=== PATIENT | male | born 1950 | race Caucasian/White ===

== ENCOUNTER 2018-07-11 16:23 | Inpatient (IN) | payer BC, MEDICARE ==
[2018-07-11] MEDS ORDERED: ATORVASTATIN 80 MG TAB PO STA (16:33)
[2018-07-11] MEDS ORDERED: HEPARIN SODIUM,PORCINE 5,000 UNIT/ML 1 ML VIAL IV STA (16:33)
[2018-07-11] MEDS ORDERED: NITROGLYCERIN SL TABS 0.4 MG TAB SUBLINGUAL STA (16:34)
[2018-07-11] MEDS ORDERED: SODIUM CHLORIDE 0.9% 1,000 ML IV STA (16:40)
[2018-07-11] MEDS ORDERED: SODIUM CHLORIDE 0.9% 500 ML 500 ML IV STA ×2 (16:40→16:42)
--- NOTE | 2018-07-11 16:40 | ED ---
Chest Pain HPI - General Chief Complaint: Chest Pain Stated Complaint: Chest pain Time Seen by Provider: 07/11/18 16:23 Source: patient, EMS, RN notes reviewed Mode of arrival: EMS Limitations: no limitations - History of Present Illness Initial Comments: This is a 67-year-old male with a prior history of heart disease and cardiac stents who states he had he has a history of retrosternal burning type pain it felt like indigestion. It persisted into today but he started also having achy pain going into his neck on the left side toward his left arm. No fevers chills nausea vomiting sweats or other symptoms he finally called EMS this afternoon and was brought in. He was given aspirin and 3 nitroglycerin by EMS personnel his pain went from a 6-7/10 down to almost 0 at this time. No other modifying factors. The 12-lead submitted by EMS did show evidence of ST elevation in the anterior leads and some evidence of lateral elevation. MD Complaint: chest pain - Related Data Allergies Allergy/AdvReac Type Severity Reaction Status Date / Time No Known Allergies Allergy Verified 07/11/18 16:28 Review of Systems ROS Statement: Those systems with pertinent positive or pertinent negative responses have been documented in the HPI. ROS Other: All systems not noted in ROS Statement are negative. EKG Findings - EKG Results: EKG: interpreted by JORDAN (Sinus tachycardia with a rate of 146. Interval 138 QRS duration 78 QT since QTC 264/411 evidence of lateral and age indeterminate infarct also in the inferior leads. Evidence of ST elevation in V2 no old EKG available for comparison) Past Medical History Past Medical History: Diabetes Mellitus, Hyperlipidemia, Hypertension Additional Past Medical History / Comment(s): chest pain History of Any Multi-Drug Resistant Organisms: None Reported Past Surgical History: Heart Catheterization With Stent Past Psychological History: No Psychological Hx Reported Smoking Status: Never smoker Past Alcohol Use History: None Reported, Occasional Past Drug Use History: None Reported General Exam - General Exam Comments Initial Comments: This is a well-developed well-nourished awake alert anxious appearing male who is oriented 3 Limitations: no limitations General appearance: alert, anxious Head exam: Present: atraumatic, normocephalic, normal inspection Eye exam: Present: normal appearance, PERRL, EOMI. Absent: scleral icterus, conjunctival injection, periorbital swelling ENT exam: Present: normal exam, mucous membranes moist Neck exam: Present: normal inspection, full ROM, other (No stridor JVD or bruits ). Absent: tenderness, meningismus, lymphadenopathy Respiratory exam: Present: normal lung sounds bilaterally. Absent: respiratory distress, wheezes, rales, rhonchi, stridor Cardiovascular Exam: Present: normal rhythm, tachycardia, normal heart sounds. Absent: systolic murmur, diastolic murmur, rubs, gallop, clicks GI/Abdominal exam: Present: soft, normal bowel sounds. Absent: distended, tenderness, guarding, rebound, rigid Extremities exam: Present: normal inspection, full ROM, normal capillary refill. Absent: tenderness, pedal edema, joint swelling, calf tenderness Back exam: Present: normal inspection Neurological exam: Present: alert, oriented X3, CN II-XII intact Psychiatric exam: Present: normal affect, normal mood Skin exam: Present: warm, dry, intact, normal color. Absent: rash Course Vital Signs 07/11/18 07/11/18 07/11/18 16:24 16:35 16:40 Temperature 97.7 F Pulse Rate 144 H 131 H Respiratory 18 18 18 Rate Blood Pressure 151/103 162/112 O2 Sat by Pulse 95 98 Oximetry 07/11/18 16:49 Temperature Pulse Rate 142 H Respiratory 18 Rate Blood Pressure 156/100 O2 Sat by Pulse 98 Oximetry - Reevaluation(s) Reevaluation #1: 07/11/18 16:42 Comparing this EKG that was done in the emergency department with one transmitted by EMS and does appear to be some improvement in the waveforms in the lateral and anterior leads. Patient has very minimal discomfort in the anterior chest and neck at this time. Additionally his heart rate was noted that when he was more calm is a post when he was very anxious. Reevaluation #2: 07/11/18 16:42 monitoring engineer: This was ordered upon arrival for evaluation for possible dysrhythmia. The patient did present with chest pain consistent with acute coronary syndrome. Reevaluation #3: 07/11/18 16:43 I did discuss the case with Dr. Henley and Dr. Kennedy. A STEMI alert was called. Reevaluation #4: 07/11/18 16:52 Reevaluation patient revealed he had no chest pain or neck pain he did state he had a slight sore throat he attributes this to swallowing regular aspirin earlier. He is very anxious and emotional son is present. Reevaluation #5: 07/11/18 16:58 Patient did go to the Data Migration Lead. I did discuss the case with Dr. Patterson Chest Pain MDM - MDM Patient to go directly to the Data Migration Lead. Dr. Patterson will be notified by me. Critical Care Time Critical Care Time: Yes Critical Care Time: 31 minutes of critical care time which includes initial presentation with history physical lab and x-ray orders multiple reevaluation the patient to responsive therapy discussion with paramedics upon arrival review of the EKG that was presented by EMS. Discussion with the hospice social worker discussed with family members discussion with the attending physician documentation of the above. Disposition Clinical Impression: ST elevation myocardial infarction (STEMI), Chest pain, Anxiety Disposition: ADMITTED IP TO THIS HOSP Condition: Serious Referrals: Kimberly Patterson MD [Primary Care Provider] - 1-2 days
[2018-07-11] MEDS ORDERED: SODIUM CHLORIDE 0.9% 1,000 ML IV ONE (16:53)
[2018-07-11] MEDS ORDERED: SODIUM CHLORIDE 0.9% 500 ML 500 ML IV ONE (16:53)
[2018-07-11 16:57] LABS: Basophils % (A) 0 %; Eosinophils # (A) 0.2 k/uL (0-0.7); Eosinophils % (A) 2 %; HCT 42.3 % (39.0-53.0); HGB 14.5 gm/dL (13.0-17.5); Lymphocytes # (A) 2.9 k/uL (1.0-4.8); Lymphocytes % (A) 29 %; MCH 29.7 pg (25.0-35.0); MCHC 34.3 g/dL (31.0-37.0); MCV 86.6 fL (80.0-100.0); Mean Platelet Volume 7.2; Monocytes # (A) 0.8 k/uL (0-1.0); Monocytes % (A) 8 %; Neutrophils # (A) 5.7 k/uL (1.3-7.7); Neutrophils % (A) 58 %; Platelet Count 321 k/uL (150-450); RBC 4.89 m/uL (4.30-5.90); RDW 13.2 % (11.5-15.5); WBC 9.9 k/uL (3.8-10.6)
[2018-07-11] MEDS ORDERED: METOPROLOL TARTRATE 5 MG/5 ML VIAL IVP ONE ×2 (17:03→17:05)
[2018-07-11] MEDS ORDERED: fentaNYL (PF) 50 MCG/ML 2 ML AMP IVP ONE (17:06)
[2018-07-11 17:07] LABS: INR 0.9 (<1.2); Partial Thromboplastin Time 23.3 sec (22.0-30.0)
[2018-07-11] MEDS ORDERED: fentaNYL (PF) 50 MCG/ML 2 ML AMP ONE (17:07)
[2018-07-11] MEDS ORDERED: LIDOCAINE 1% INJ 10MG/ML (20 ML MDV) SQ ONE (17:07)
[2018-07-11] MEDS ORDERED: MIDAZOLAM 2 MG/2 ML VIAL IVP ONE (17:07)
[2018-07-11] MEDS ORDERED: BIVALIRUDIN BOLUS 250 MG/50 ML IV ONE (17:14)
[2018-07-11] MEDS ORDERED: TICAGRELOR 90 MG TAB ONE (17:16)
[2018-07-11] MEDS ORDERED: TICAGRELOR 90 MG TAB PO ONE (17:19)
[2018-07-11] MEDS ORDERED: BIVALIRUDIN 250 MG in SODIUM CHLORIDE 0.9% 50 ML IV ONE ×4 (17:19)
[2018-07-11 17:30] LABS: Albumin 4.2 g/dL (3.5-5.0); Calcium 10.1 mg/dL (8.4-10.2); Magnesium 1.6 mg/dL (1.6-2.3); Potassium 4.2 mmol/L (3.5-5.1); Total Bilirubin 0.7 mg/dL (0.2-1.3); Total Protein 7.1 g/dL (6.3-8.2)
[2018-07-11] MEDS ORDERED: IOPAMIDOL-370 150ML BTL INJ ONE (17:41)
[2018-07-11] MEDS ORDERED: IOPAMIDOL-370 50ML BTL INJ ONE ×2 (17:54→18:04)
[2018-07-11] MEDS ORDERED: NITROGLYCERIN 1000MCG/10ML SYRINGE INTRACORON ONE (17:56)
--- NOTE | 2018-07-11 18:09 | CONS ---
CONSULTATION CHIEF COMPLAINT: Chest pain. This is a 68-year-old gentleman with history of coronary artery disease, status post prior anterior wall myocardial infarction. He had an angioplasty of LAD. He presented to hospital with sudden-onset chest pain this evening. He describes it as a burning discomfort in his neck, burning discomfort in his throat, and subsequently he had chest pain. It was 7/10 intensity. It was called in as a STEMI and we were called. We activated the lab and brought him for emergent cardiac catheterization. At the time of my evaluation, the patient seems [id number], hemodynamically stable. He is tachycardic and seems somewhat anxious, but his chest pain has resolved. PAST MEDICAL HISTORY: Significant for coronary artery disease, status post angioplasty. MEDICATIONS: As charted. ALLERGIES: CHARTED. FAMILY HISTORY: Negative for premature coronary artery disease. SOCIAL HISTORY: Negative for current smoking, EtOH abuse or drug abuse. REVIEW OF SYSTEMS: Twelve out of twelve system review has been performed. Pertinent information is that he has chest pain. PHYSICAL EXAMINATION: Patient appears comfortable at rest. Vital signs are stable. There is no jugular venous distention. Carotid upstroke is normal. There is no bruit. Chest exam reveals good air entry bilaterally. Heart exam reveals first and second heart sounds. No gallop. He has a systolic murmur at the left lower sternal border. Abdomen is soft. Examination of extremities did not reveal any edema. Peripheral pulses are palpable. EKG shows acute ST-segment elevation in the anterolateral leads. IMPRESSION: Acute anterior wall myocardial infarction. PLAN: Patient will undergo emergent cardiac catheterization, angioplasty. MMODL / IJN: [id number] /
[2018-07-11] MEDS ORDERED: RX INFO: IV CONTRAST WAS GIVEN 1 EACH MISC MISCELLANE PRN (18:12)
[2018-07-11] MEDS ORDERED: ATROPINE SULFATE 0.1 MG/ML 10ML SYRINGE IV PRN (18:12)
[2018-07-11] MEDS ORDERED: NITROGLYCERIN SL TABS 0.4 MG TAB SUBLINGUAL PRN (18:12)
[2018-07-11] MEDS ORDERED: ZOLPIDEM 5 MG TAB PO PRN (18:12)
[2018-07-11] MEDS ORDERED: MAG HYDROX/AL HYDROX/SIMETH 30 ML CUP PO PRN (18:12)
--- NOTE | 2018-07-11 18:12 | CC ---
CARDIAC CATHETERIZATION REPORT INDICATION: Acute ST-segment elevation CO. PROCEDURE NOTE: After obtaining informed consent, left heart catheterization and coronary angiogram were performed via the right femoral artery using standard Juan catheters. Patient tolerated the procedure well without any obvious immediate complications. Patient received moderate conscious sedation. Total sedation time was 12 minutes. FINDINGS: HEMODYNAMICS: Left ventricular end-diastolic pressure is 16-18 mm. There is no significant gradient across the aortic valve. LEFT VENTRICULOGRAM: Left ventriculogram was not performed. ANGIOGRAPHIC DATA: LEFT MAIN CORONARY ARTERY: Left main coronary artery appears calcified but is free of significant stenosis. It divides into left anterior descending coronary artery and circumflex coronary artery. LAD shows 95% stenosis in the proximal part, proximal to the previous stent. He also has another area of segmental lesion in the middle of the stent and in the distal part of the stent. Circumflex coronary artery is free of stenosis. An OM branch is chronically occluded. It was occluded on previous cath. RIGHT CORONARY ARTERY: Right coronary artery is a small nondominant vessel and is free of significant stenosis. CONCLUSIONS: Stenosis of 99% in the proximal part of the LAD and segmental area of some stenotic lesions within the LAD and chronic occlusion of the OM branch. PLAN: Patient will undergo angioplasty of the proximal LAD. MMODL / IJN: [id number] /
[2018-07-11] MEDS ORDERED: SODIUM CHLORIDE 0.9% 1,000 ML IV SCH (18:15)
[2018-07-11 18:38] LABS: Glucose,Whole Blood 192 mg/dL (75-99)
--- NOTE | 2018-07-11 18:42 | CC ---
CARDIAC CATHETERIZATION REPORT Mr. Ray is a 68-year-old male with a known history of coronary artery disease who presented with symptoms of chest discomfort and ST-segment elevation anteriorly. He underwent cardiac catheterization by Dr. Henley and was found to have critical stenosis involving the proximal LAD and significant in-stent restenosis that was performed in 2009 in the mid segment of the LAD. In view of that, recommendation was made regarding angioplasty and stenting. The procedures, risks and complications were discussed with the patient who is in full understanding and agreement. PROCEDURE: A 6-Ethiopian FL 3.5 guiding catheter was introduced into the system after cannulating the left main, a 0.014 balanced medium weight J-wire was advanced across the lesion and positioned distally. Then a 2.5 x 12 mm Trek balloon was advanced and multiple inflations at a maximum of 8 atmospheres were done. Following that, the balloon was removed and attempt to advance a 2.5 x 28 mm Xience Lily stent were unsuccessful. That stent was removed and a another 0.2014 balanced medium weight J-wire was advanced next to the first one in a madeline fashion, positioned in the distal LAD and then the 2.5 x 28 mm Xience Lily was advanced, deployed and postdilated at 14 atmospheres. After removing the balloon, a 2.5 x 18 mm Xience Lily stent was deployed proximal to the first one and it was dilated at 14 atmospheres. Following that, the balloon was removed and a 2.75 x 50 mm Xience Lily stent was deployed proximally and it was dilated at 16 atmospheres. Following that, a 2.75 x 8 mm Xience Lily stent was deployed in the overlapping segment between the last stent and the second stent and was dilated at 16 atmospheres. After the last inflation, after appropriate wait, the balloon and the guidewire were withdrawn back in the guiding catheter. Images were obtained and repeated. Those images revealed stable successful stenting. At that point, the guiding catheter, the balloon and the guidewire were removed. The sheath was removed. Hemostasis was obtained with deployment of an Angio-Seal. There was no immediate complication. Patient was returned to his room in stable condition. Of note, the patient had chest discomfort and EKG changes with the inflation that improved at the end of the procedure. He received Angiomax per protocol as well as oral loading dose of Brilinta. RESULTS: 1. Successful stenting of the proximal culprit lesion of the LAD with reduction of stenosis from 95% to 0%. 2. Successful stenting of two long segments of in-stent restenosis of the mid LAD of the stents that were performed in 2009 with reduction of stenosis from 95% to 0%. RECOMMENDATION: Patient will be continued on aspirin, Brilinta, beta blockers and statin. The importance of dual antiplatelet treatment were discussed with the patient and his family who are in full understanding and agreement. Duration of procedure is 43 minutes. MMODL / IJN: [id number] /
--- NOTE | 2018-07-11 19:09 | LTR ---
DATE OF SERVICE: 07/11/[address] Patterson: I had the pleasure of performing coronary angioplasty and stenting on Mr. Ray at [facility] on July 11 and a full copy of procedure note will be forwarded to you. In brief, he underwent successful stenting of his proximal mid LAD using drug- eluting stent. I am hopeful that this procedure will stabilize his status. I will keep you updated on his progress. Thank you again for allowing me to participate in his care. Please feel free to call for any questions. Sincerely yours, MMARIADNAL / IJN: [id number] /
[2018-07-11] MEDS: METOPROLOL TARTRATE 25 MG TAB PO SCH (20:10)
[2018-07-11 23:01] LABS: Cholesterol 156 mg/dL (<200); HDL Cholesterol 42 mg/dL (40-60); LDL Cholesterol,Calculated 77 mg/dL (0-99); Triglycerides 184 mg/dL (<150)
[2018-07-11] MEDS: INSULIN ASPART (NovoLOG) 100 UNIT/ML VIAL SQ SCH (23:01)
[2018-07-11 23:23] LABS: Glucose,Whole Blood 212 mg/dL (75-99)
[2018-07-12] MEDS: NITROGLYCERIN OINT 1 INCH/GM PACKET TOPICAL SCH ×4 (01:19→18:10)
[2018-07-12 02:03] LABS: Glucose,Whole Blood 238 mg/dL (75-99)
[2018-07-12 05:36] LABS: Calcium 8.9 mg/dL (8.4-10.2); Potassium 4.7 mmol/L (3.5-5.1)
[2018-07-12 07:03] LABS: Glucose,Whole Blood 153 mg/dL (75-99)
[2018-07-12] MEDS: INSULIN ASPART (NovoLOG) 100 UNIT/ML VIAL SQ SCH ×4 (08:09→21:18)
[2018-07-12] MEDS: METOPROLOL TARTRATE 25 MG TAB PO SCH ×2 (08:22→21:17)
[2018-07-12] MEDS: ASPIRIN 81 MG PO SCH (08:22)
[2018-07-12] MEDS: TICAGRELOR 90 MG TAB PO SCH ×2 (08:23→21:18)
[2018-07-12] MEDS: LISINOPRIL 5 MG TAB PO SCH (10:26)
--- NOTE | 2018-07-12 10:59 | P.PN ---
Subjective Progress Note Date: 07/12/18 This is a 68-year-old gentleman with history of ischemic heart disease with previous stent placement of the mid LAD who was admitted to the hospital with ST elevation microinfarction. Patient had a cardiac catheterization and was found to have 95% stenosis of the proximal LAD and also significant in-stent stenosis involving mid LAD. Patient and multiple stents done by Dr. Kennedy. Patient seemed to be doing well. Denies any chest pain, shortness of breath or dizziness. No arrhythmias noted. His lab work showed a peak troponin of 11.9. Electoral lites are within normal limits. His cholesterol is 156, LDL is 77. Lungs are clear. Heart is regular. His puncture site is soft without any hematoma. Please increase his activity. Will get an echocardiogram tomorrow. Transfer to telemetry tomorrow Objective - Vital Signs Vital signs: Vital Signs Temp 96.9 F L 07/12/18 08:00 Pulse 76 07/12/18 10:00 Resp 14 07/12/18 10:00 BP 116/80 07/12/18 10:00 Pulse Ox 94 L 07/12/18 10:00 Intake & Output 07/11/18 07/12/18 07/12/18 18:59 06:59 18:59 Intake Total 778 1240 400 Output Total 675 0 Balance 778 565 400 Weight 66.678 kg 69.9 kg Intake: IV 778 800 Sodium Chloride 0.9% 1, 800 000 ml @ 100 mls/hr IV . Q10H [facility] Rx#:[id number] Intake, IV Titration 200 Amount Sodium Chloride 0.9% 1, 200 000 ml @ 100 mls/hr IV . Q10H [facility] Rx#:[id number] Oral 240 400 Output: Urine 675 0 Other: # Voids 1 1 - Exam GENERAL EXAM: Patient is alert and oriented and doesn't appear to be in any acute distress HEENT: Normocephalic. Normal reaction of pupils, equal size, normal range of extraocular motion. No erythema or exudates in the throat. NECK: No masses, no nuchal rigidity. CHEST: No chest wall deformity. LUNGS: Equal air entry with no crackles or wheeze. HEART: S1 and S2 normal with no audible mumurs or gallops. Regular rhythm, femorals equal on both sides.. ABDOMEN: No hepatosplenomegaly, normal bowel sounds, no guarding or rigidity. SKIN: No rashes CENTRAL NERVOUS SYSTEM: No focal deficits. EXTREMITIES: No cyanosis, clubbing or edema. PUNCTURE SITE: Soft without any hematoma - Labs CBC & Chem 7: 07/11/18 16:25 07/12/18 05:10 Labs: Abnormal Lab Results - Last 24 Hours (Table) 07/11/18 07/11/18 07/11/18 Range/Units 16:25 18:26 22:27 Sodium (137-145) mmol/L Carbon Dioxide 21 L (22-30) mmol/L Creatinine 1.31 H (0.66-1.25) mg/dL Glucose 244 H (74-99) mg/dL POC Glucose (mg/dL) 192 H (75-99) mg/dL Troponin I 7.480 H* (0.000-0.034) ng/mL Triglycerides (<150) mg/dL 07/11/18 07/11/18 07/12/18 Range/Units 22:27 22:54 01:52 Sodium (137-145) mmol/L Carbon Dioxide (22-30) mmol/L Creatinine (0.66-1.25) mg/dL Glucose (74-99) mg/dL POC Glucose (mg/dL) 212 H 238 H (75-99) mg/dL Troponin I (0.000-0.034) ng/mL Triglycerides 184 H (<150) mg/dL 07/12/18 07/12/18 07/12/18 Range/Units 05:10 05:10 06:52 Sodium 136 L (137-145) mmol/L Carbon Dioxide (22-30) mmol/L Creatinine (0.66-1.25) mg/dL Glucose 136 H (74-99) mg/dL POC Glucose (mg/dL) 153 H (75-99) mg/dL Troponin I 11.900 H* (0.000-0.034) ng/mL Triglycerides (<150) mg/dL Assessment and Plan (1) ST elevation myocardial infarction (STEMI) Current Visit: Yes Status: Acute Code(s): I21.3 - ST ELEVATION (STEMI) MYOCARDIAL INFARCTION OF UNS SITE SNOMED Code(s): 766247276 (2) Diabetes mellitus Current Visit: Yes Status: Acute Code(s): E11.9 - TYPE 2 DIABETES MELLITUS WITHOUT COMPLICATIONS SNOMED Code(s): 23393584 (3) Hypertension Current Visit: Yes Status: Acute Code(s): I10 - ESSENTIAL (PRIMARY) HYPERTENSION SNOMED Code(s): 48265215 (4) Hyperlipidemia Current Visit: Yes Status: Acute Code(s): E78.5 - HYPERLIPIDEMIA, UNSPECIFIED SNOMED Code(s): 82779748 Plan: Patient is clinically doing well. Lungs are clear. Heart is regular. We'll increase his activity. Echo in the morning. Transfer to telemetry in the morning.
[2018-07-12 11:36] VITALS: BMI 23.4
[2018-07-12 12:25] LABS: Glucose,Whole Blood 211 mg/dL (75-99)
[2018-07-12] MEDS: ALLOPURINOL 300 MG TAB PO SCH (12:42)
--- NOTE | 2018-07-12 13:02 | P.HPIM ---
History of Present Illness H&P Date: 07/12/18 Chief Complaint: Chest pain Etienne Ray is a 68-year-old male who presented to [facility] emergency room via EMS after having an episode of chest pain, patient stated that he was alone at home when he started having pressure in the middle of his chest radiating up to the left side of his neck he called EMS EKG was done at the house and revealed ST elevation in the anterior lead patient was brought into emergency room and was taken immediately to the laboratory specialist he had evidence of 99% stenosis in the mid LAD, he underwent angioplasty and stent placement to the lesion and also 2 other lesions in the LAD that showed restenosis inside the previous stents patient was doing well he was admitted to intensive care unit. Patient has a known history of coronary artery disease with previous history of angioplasty and stent placement in the past, he also has known history of non- insulin-dependent diabetes mellitus his last hemoglobin A1c was 7.4 he has history of hypertension, hyperlipidemia, hypothyroidism, and gout. He is a former smoker he has not smoked in years, he is still active and works full- time at this time. Past Medical History Past Medical History: Coronary Artery Disease (CAD), Chest Pain / Angina, Diabetes Mellitus, Hyperlipidemia, Hypertension, Myocardial Infarction (HI) Additional Past Medical History / Comment(s): chest pain Last Myocardial Infarction Date:: 9 years ago History of Any Multi-Drug Resistant Organisms: None Reported Past Surgical History: Heart Catheterization With Stent Past Anesthesia/Blood Transfusion Reactions: No Reported Reaction Date of Last Stent Placement:: 11/2009 Smoking Status: Never smoker - Past Family History Father Family Medical History: Myocardial Infarction (HI) Additional Family Medical History / Comment(s): ruptured bowel Mother History Unknown: Yes Family Medical History: Myocardial Infarction (HI) Additional Family Medical History / Comment(s): ETOH Sister(s) Family Medical History: Coronary Artery Disease (CAD) Medications and Allergies Home Medications Medication Instructions Recorded Confirmed Type Allopurinol [Zyloprim] 300 mg PO DAILY 07/12/18 07/12/18 History Aspirin [[place]em Aspirin EC] 81 mg PO DAILY 07/12/18 07/12/18 History Ergocalciferol [Vitamin D2 50,000 unit PO MO 07/12/18 07/12/18 History (DRISDOL)] Famotidine [Pepcid] 20 mg PO DAILY PRN 07/12/18 07/12/18 History Indomethacin 25 mg PO Q8HR PRN 07/12/18 07/12/18 History Levothyroxine Sodium [Synthroid] 50 mcg PO DAILY 07/12/18 07/12/18 History Metoprolol Tartrate 25 mg PO DAILY 07/12/18 07/12/18 History Nitroglycerin Sl Tabs [Nitrostat] 0.4 mg SL DIRECTED 07/12/18 07/12/18 History Simvastatin 80 mg PO HS 07/12/18 07/12/18 History metFORMIN HCL [Glucophage] 500 mg PO BID 07/12/18 07/12/18 History Allergies Allergy/AdvReac Type Severity Reaction Status Date / Time No Known Allergies Allergy Verified 07/12/18 11:19 Physical Exam Vitals: Vital Signs Temp Pulse Resp BP Pulse Ox 07/12/18 10:00 76 14 116/80 94 L 07/12/18 09:00 92 13 112/67 07/12/18 08:00 96.9 F L 99 18 126/78 96 07/12/18 07:00 89 16 128/74 07/12/18 06:00 90 12 118/85 07/12/18 05:00 94 14 118/85 07/12/18 04:00 92 14 105/79 07/12/18 03:00 83 9 L 107/79 95 07/12/18 02:00 94 11 L 105/77 95 07/12/18 01:00 89 12 104/64 07/12/18 00:00 95 14 101/69 07/11/18 23:30 93 14 99/69 07/11/18 23:00 92 15 91/68 07/11/18 22:30 92 11 L 84/61 07/11/18 22:00 89 17 78/62 07/11/18 21:30 93 19 87/73 94 L 07/11/18 21:00 98 9 L 114/82 94 L 07/11/18 20:30 111 H 14 135/105 94 L 07/11/18 20:28 94 L 07/11/18 20:00 98.2 F 110 H 26 H 127/96 94 L 07/11/18 19:57 97.9 F 07/11/18 19:30 109 H 23 127/96 95 07/11/18 19:00 110 H 23 94 L 07/11/18 18:57 15 94 L 07/11/18 18:50 104 H 12 94 L 07/11/18 18:42 14 94 L 07/11/18 18:40 97.3 F L 102 H 14 125/94 94 L 07/11/18 18:30 107 H 07/11/18 16:49 142 H 18 156/100 98 07/11/18 16:40 18 07/11/18 16:35 131 H 18 162/112 98 07/11/18 16:24 97.7 F 144 H 18 151/103 95 Intake and Output 07/11/18 07/12/18 07/12/18 22:59 06:59 14:59 Intake Total 1178 840 400 Output Total 325 350 0 Balance 853 490 400 Intake: IV 1178 400 Sodium Chloride 0.9% 1, 400 400 000 ml @ 100 mls/hr IV . Q10H [facility] Rx#:[id number] Intake, IV Titration 200 Amount Sodium Chloride 0.9% 1, 200 000 ml @ 100 mls/hr IV . Q10H [facility] Rx#:[id number] Oral 240 400 Output: Urine 325 350 0 Other: # Voids 1 1 Weight 66.678 kg 69.9 kg 69.9 kg In general patient is alert and oriented 3 in no apparent distress HEENT head normocephalic and atraumatic Neck is supple no JVD no goiter no lymphadenopathy no carotid bruit Chest exam reveals a few scattered crackles no wheezing Cardiac exam reveals regular heart sounds S1 and S2 no gallops no murmurs Abdomen is soft nontender no organomegaly with normal bowel sounds Extremity exam reveals no edema no cyanosis or clubbing Neurological examination reveals no gross focal deficit Results CBC & Chem 7: 07/11/18 16:25 07/12/18 05:10 Labs: Abnormal Lab Results - Last 24 Hours (Table) 07/11/18 07/11/18 07/11/18 Range/Units 16:25 18:26 22:27 Sodium (137-145) mmol/L Carbon Dioxide 21 L (22-30) mmol/L Creatinine 1.31 H (0.66-1.25) mg/dL Glucose 244 H (74-99) mg/dL POC Glucose (mg/dL) 192 H (75-99) mg/dL Troponin I 7.480 H* (0.000-0.034) ng/mL Triglycerides (<150) mg/dL 07/11/18 07/11/18 07/12/18 Range/Units 22:27 22:54 01:52 Sodium (137-145) mmol/L Carbon Dioxide (22-30) mmol/L Creatinine (0.66-1.25) mg/dL Glucose (74-99) mg/dL POC Glucose (mg/dL) 212 H 238 H (75-99) mg/dL Troponin I (0.000-0.034) ng/mL Triglycerides 184 H (<150) mg/dL 07/12/18 07/12/18 07/12/18 Range/Units 05:10 05:10 06:52 Sodium 136 L (137-145) mmol/L Carbon Dioxide (22-30) mmol/L Creatinine (0.66-1.25) mg/dL Glucose 136 H (74-99) mg/dL POC Glucose (mg/dL) 153 H (75-99) mg/dL Troponin I 11.900 H* (0.000-0.034) ng/mL Triglycerides (<150) mg/dL 07/12/18 Range/Units 12:14 Sodium (137-145) mmol/L Carbon Dioxide (22-30) mmol/L Creatinine (0.66-1.25) mg/dL Glucose (74-99) mg/dL POC Glucose (mg/dL) 211 H (75-99) mg/dL Troponin I (0.000-0.034) ng/mL Triglycerides (<150) mg/dL Thrombosis Risk Factor Assmnt - Choose All That Apply Any of the Below Risk Factors Present?: No Other Risk Factors: Yes Each Risk Factor Represents 2 Points: Age 61-74 years Thrombosis Risk Factor Assessment Total Risk Factor Score: 2 Thrombosis Risk Factor Assessment Level: Low Risk Assessment and Plan Plan: #[address] elevation myocardial infarction as evidenced by ST elevation in anterior leads on EKG done by EMS #2 evidence of 99% stenosis in the mid LAD status post angioplasty and stent placement #3 underlying history of hypertension #4 underlying history of hyperlipidemia #5 underlying history of xfu-cilpixr-vpprfrhby diabetes mellitus, metformin on hold at this time due to use of contrast material covering was inserted into sliding scale #6 underlying history of hypothyroidism #7 underlying history of gout At this time patient is admitted to intensive care unit Medication reviewed home medications reordered Patient is chest pain-free at this time continue with current management Echocardiogram was ordered Will recheck labs in a.m.
[2018-07-12 17:15] LABS: Glucose,Whole Blood 139 mg/dL (75-99)
[2018-07-12] MEDS ORDERED: ATORVASTATIN 80 MG TAB PO SCH (21:00)
[2018-07-12 21:25] LABS: Glucose,Whole Blood 186 mg/dL (75-99)
[2018-07-13] MEDS: NITROGLYCERIN OINT 1 INCH/GM PACKET TOPICAL SCH ×3 (00:33→12:48)
[2018-07-13 06:23] LABS: Basophils % (A) 0 %; Eosinophils # (A) 0.1 k/uL (0-0.7); Eosinophils % (A) 1 %; HCT 36.8 % (39.0-53.0); HGB 12.6 gm/dL (13.0-17.5); Lymphocytes # (A) 1.6 k/uL (1.0-4.8); Lymphocytes % (A) 17 %; MCH 30.1 pg (25.0-35.0); MCHC 34.3 g/dL (31.0-37.0); Mean Platelet Volume 6.5; Monocytes # (A) 0.7 k/uL (0-1.0); Monocytes % (A) 7 %; Neutrophils # (A) 6.7 k/uL (1.3-7.7); Neutrophils % (A) 73 %; Platelet Count 233 k/uL (150-450); RBC 4.18 m/uL (4.30-5.90); RDW 13.2 % (11.5-15.5); WBC 9.3 k/uL (3.8-10.6)
[2018-07-13] MEDS ORDERED: LEVOTHYROXINE 50 MCG TAB PO SCH (06:30)
[2018-07-13 06:33] LABS: Albumin 3.3 g/dL (3.5-5.0); Potassium 5.3 mmol/L (3.5-5.1); Total Bilirubin 1.1 mg/dL (0.2-1.3); Total Protein 5.7 g/dL (6.3-8.2)
[2018-07-13] MEDS: INSULIN ASPART (NovoLOG) 100 UNIT/ML VIAL SQ SCH ×2 (07:33→12:49)
[2018-07-13] MEDS: ALLOPURINOL 300 MG TAB PO SCH (08:16)
[2018-07-13] MEDS: METOPROLOL TARTRATE 25 MG TAB PO SCH (08:17)
[2018-07-13] MEDS: ASPIRIN 81 MG PO SCH (08:17)
[2018-07-13] MEDS: TICAGRELOR 90 MG TAB PO SCH (08:17)
[2018-07-13 10:05] VITALS: BP 111/75; RESP 12
[2018-07-13] MEDS: LISINOPRIL 5 MG TAB PO SCH (10:07)
--- NOTE | 2018-07-13 11:35 | ECHOF ---
Referral Reason:Chest pain and cardiomyopathy MEASUREMENTS -------- HEIGHT: 172.7 cm WEIGHT: 66.7 kg BP: IVSd: 0.8 cm (0.6 - 1.1) LVIDd: 4.1 cm (3.9 - 5.3) LVPWd: 0.8 cm (0.6 - 1.1) IVSs: 1.3 cm LVIDs: 3.0 cm LVPWs: 1.2 cm LAESV Index (A-L): 17.55 ml/m Ao Diam: 2.8 cm (2.0 - 3.7) AV Cusp: 1.4 cm (1.5 - 2.6) LA Diam: 3.1 cm (2.7 - 3.8) MV EXCURSION: 13.189 mm (> 18.000) MV EF SLOPE: 117 mm/s (70 - 150) EPSS: 0.5 cm MV E Luis: 0.92 m/s MV DecT: 144 ms MV A Luis: 1.04 m/s MV E/A Ratio: 0.89 RAP: 5.00 mmHg RVSP: 24.61 mmHg FINDINGS -------- Sinus rhythm. This was a technically difficult study with suboptimal views. The left ventricular size is normal. Left ventricular wall thickness is normal. Overall left vent ricular systolic function is mild-moderately impaired with, an EF between 40 - 45 %. Mid anterior L V wall motion is hypokinetic. Mid anteroseptal LV wall motion is hypokinetic. Apical anterior L V wall motion is hypokinetic. Apical septum LV wall motion is hypokinetic. The right ventricle is normal in size. Normal LA size by volume 22+/-6 ml/m2. The right atrium is normal in size. Lumason used There is mild aortic valve sclerosis. The mitral valve leaflets are mildly thickened. Mild mitral regurgitation is present. Mild tricuspid regurgitation present. There is no evidence of pulmonary hypertension. The right v entricular systolic pressure, as measured by Doppler, is 24.61mmHg. There is no pulmonic regurgitation present. The aortic root size is normal. IVC Not well visulized. There is no pericardial effusion. CONCLUSIONS -------- 1. Sinus rhythm. 2. This was a technically difficult study with suboptimal views. 3. The left ventricular size is normal. 4. Left ventricular wall thickness is normal. 5. Overall left ventricular systolic function is mild-moderately impaired with, an EF between 40 - 45 %. 6. Mid anterior LV wall motion is hypokinetic. 7. Mid anteroseptal LV wall motion is hypokinetic. 8. Apical anterior LV wall motion is hypokinetic. 9. Apical septum LV wall motion is hypokinetic. 10. Normal LA size by volume 22+/-6 ml/m2. 11. Lumason used 12. There is mild aortic valve sclerosis. 13. The mitral valve leaflets are mildly thickened. 14. Mild mitral regurgitation is present. 15. Mild tricuspid regurgitation present. 16. There is no evidence of pulmonary hypertension. 17. There is no pulmonic regurgitation present. 18. The aortic root size is normal. 19. IVC Not well visulized. 20. There is no pericardial effusion. [employer] MACHINE OPERATOR: Shirlene Arias RDCS
[2018-07-13 11:42] LABS: Hemoglobin A1C 7.6 % (4.0-6.0)
[2018-07-13 12:07] LABS: Glucose,Whole Blood 157 mg/dL (75-99)
[2018-07-13] MEDS ORDERED: SODIUM POLYSTYRENE SULFONATE 15 GM/60 ML BOTTLE PO STA (12:19)
--- NOTE | 2018-07-13 12:31 | P.DS ---
Providers Date of admission: 07/11/18 17:03 Expected date of discharge: 07/13/18 Attending physician: Kimberly Patterson Consults: 07/11/18 18:12 Consult Physician Routine Consulting Provider: [facility] Consult Reason/Comments: Post Interventional patient Do you want consulting provider notified?: Already Contacted Primary care physician: Kimberly Patterson [facility] Course: Discharge diagnosis #[address] elevation myocardial infarction as evidenced by ST elevation in anterior leads on EKG done by EMS #2 evidence of 99% stenosis in the mid LAD status post angioplasty and stent placement #3 underlying history of hypertension #4 underlying history of hyperlipidemia #5 underlying history of iia-daquupf-iydiazecp diabetes mellitus, metformin on hold at this time due to use of contrast material covering was inserted into sliding scale #6 underlying history of hypothyroidism #7 underlying history of gout #8. Hyperkalemia. Patient will get 1 dose of Late. Patient to follow-up with PCP for Further management 2-D echocardiogram completed showing an EF of 40-45% Patient remains chest pain-free at this time. Patient will be DC'd on Brillinta for anticoagulation Patient has been cleared for discharge from cardiology services Hospital course Etienne Ray is a 68-year-old male who presented to [facility] emergency room via EMS after having an episode of chest pain, patient stated that he was alone at home when he started having pressure in the middle of his chest radiating up to the left side of his neck he called EMS EKG was done at the house and revealed ST elevation in the anterior lead patient was brought into emergency room and was taken immediately to the can labeler he had evidence of 99% stenosis in the mid LAD, he underwent angioplasty and stent placement to the lesion and also 2 other lesions in the LAD that showed restenosis inside the previous stents patient was doing well he was admitted to intensive care unit. Patient has a known history of coronary artery disease with previous history of angioplasty and stent placement in the past, he also has known history of non- insulin-dependent diabetes mellitus his last hemoglobin A1c was 7.4 he has history of hypertension, hyperlipidemia, hypothyroidism, and gout. He is a former smoker he has not smoked in years, he is still active and works full- time at this time. On 07/13/2018 patient is alert and oriented 3 resting comfortably in bed. Patient remains chest pain-free. Patient has been up ambulating without any issues. Per nursing staff patient has been cleared for discharge from cardiology services. Discussed case with cardiology CHUMMER Analy. Patient will be DC'd on Brilinta for anticoagulation. Patient to follow-up closely with PCP and cardiology services. Patient's potassium elevated at 5.3. Patient will get 1 dose of Kayexalate. Patient to follow-up with PCP for further management. At this time patient denies chest pain or shortness of breath. Patient denies nausea vomiting or diarrhea. Patient denies any urinary burning or frequency I performed an examination of the patient and discussed their management with the Nurse Practitioner. I have reviewed the Nurse Practitioner's notes and agree with the documented findings and plan of care Patient Condition at Discharge: Stable Plan - Discharge Summary Discharge Rx Participant: Yes New Discharge Prescriptions: No Action metFORMIN HCL [Glucophage] 500 mg PO BID Simvastatin 80 mg PO HS Nitroglycerin Sl Tabs [Nitrostat] 0.4 mg SL DIRECTED Metoprolol Tartrate 25 mg PO DAILY Levothyroxine Sodium [Synthroid] 50 mcg PO DAILY Indomethacin 25 mg PO Q8HR PRN PRN Reason: Pain Famotidine [Pepcid] 20 mg PO DAILY PRN PRN Reason: Heartburn Ergocalciferol [Vitamin D2 (DRISDOL)] 50,000 unit PO MO Aspirin [[place] Aspirin EC] 81 mg PO DAILY Allopurinol [Zyloprim] 300 mg PO DAILY Discharge Medication List Allopurinol [Zyloprim] 300 mg PO DAILY 07/12/18 [History] Aspirin [[place] Aspirin EC] 81 mg PO DAILY 07/12/18 [History] Ergocalciferol [Vitamin D2 (DRISDOL)] 50,000 unit PO MO 07/12/18 [History] Famotidine [Pepcid] 20 mg PO DAILY PRN 07/12/18 [History] Indomethacin 25 mg PO Q8HR PRN 07/12/18 [History] Levothyroxine Sodium [Synthroid] 50 mcg PO DAILY 07/12/18 [History] Metoprolol Tartrate 25 mg PO DAILY 07/12/18 [History] Nitroglycerin Sl Tabs [Nitrostat] 0.4 mg SL DIRECTED 07/12/18 [History] Simvastatin 80 mg PO HS 07/12/18 [History] metFORMIN HCL [Glucophage] 500 mg PO BID 07/12/18 [History] Follow up Appointment(s)/Referral(s): Kimberly Patterson MD [Primary Care Provider] - 1-2 days Activity/Diet/Wound Care/Special Instructions: Copay for Brilinta is $361.88. Patient given free month coupon.
[2018-07-13 13:32] VITALS: PULSE 81; TEMP 97.8
--- NOTE | 2018-07-13 14:19 | P.PN ---
Subjective Progress Note Date: 07/13/18 This is a 68-year-old gentleman with history of ischemic heart disease with previous stent placement of the mid LAD who was admitted to the hospital with ST elevation microinfarction. Patient had a cardiac catheterization and was found to have 95% stenosis of the proximal LAD and also significant in-stent stenosis involving mid LAD. Patient and multiple stents done by Dr. Kennedy. Patient seemed to be doing well. Denies any chest pain, shortness of breath or dizziness. No arrhythmias noted. His lab work showed a peak troponin of 11.9. Electoral lites are within normal limits. His cholesterol is 156, LDL is 77. Lungs are clear. Heart is regular. His puncture site is soft without any hematoma. Please increase his activity. Will get an echocardiogram tomorrow. Transfer to telemetry tomorrow. 07/13/2018: This 68-year-old gentleman was admitted to the hospital with acute coronary syndrome and had stent placement of the proximal and mid LAD. Patient remained stable since yesterday. Denies any chest pain or shortness of breath. Tolerating activity very well. His puncture site is healing well. His laboratory showed a hemoglobin of 12.6. BMP showed potassium of 5.3. His creatinine is 1.19. Lungs are clear. Heart is regular. No JVD. Patient is being discharged home. Follow-up with Dr. Henley as an outpatient Objective - Vital Signs Vital signs: Vital Signs Temp 97.8 F 07/13/18 12:00 Pulse 81 07/13/18 12:00 Resp 12 07/13/18 12:00 BP 111/75 07/13/18 12:00 Pulse Ox 97 07/13/18 12:00 Intake & Output 07/12/18 07/13/18 07/13/18 18:59 06:59 18:59 Intake Total 1480 500 180 Output Total 0 0 0 Balance 1480 500 180 Weight 69.9 kg 69.7 kg Intake: IV 0 Sodium Chloride 0.9% 1, 0 000 ml @ 100 mls/hr IV . Q10H [facility] Rx#:[id number] Intake, IV Titration 0 0 Amount Sodium Chloride 0.9% 500 0 0 ml 500 ml @ 0 mls/hr IV . [facility] Rx#: [id number] Oral 1480 500 180 Output: Urine 0 0 0 Other: Voiding Method Toilet # Voids 2 1 1 # Bowel Movements 1 - Exam GENERAL EXAM: Patient is alert and oriented and doesn't appear to be in any acute distress HEENT: Normocephalic. Normal reaction of pupils, equal size, normal range of extraocular motion. No erythema or exudates in the throat. NECK: No masses, no nuchal rigidity. CHEST: No chest wall deformity. LUNGS: Equal air entry with no crackles or wheeze. HEART: S1 and S2 normal with no audible mumurs or gallops. Regular rhythm, femorals equal on both sides.. ABDOMEN: No hepatosplenomegaly, normal bowel sounds, no guarding or rigidity. SKIN: No rashes CENTRAL NERVOUS SYSTEM: No focal deficits. EXTREMITIES: No cyanosis, clubbing or edema. PUNCTURE SITE: Soft without any hematoma - Labs CBC & Chem 7: 07/13/18 05:00 07/13/18 06:00 Labs: Abnormal Lab Results - Last 24 Hours (Table) 07/11/18 07/12/18 07/12/18 Range/Units 22:27 17:04 21:14 RBC (4.30-5.90) m/uL Hgb (13.0-17.5) gm/dL Hct (39.0-53.0) % Sodium (137-145) mmol/L Potassium (3.5-5.1) mmol/L Glucose (74-99) mg/dL POC Glucose (mg/dL) 139 H 186 H (75-99) mg/dL Hemoglobin A1c 7.6 H (4.0-6.0) % AST (17-59) U/L Total Protein (6.3-8.2) g/dL Albumin (3.5-5.0) g/dL 07/13/18 07/13/18 07/13/18 Range/Units 05:00 06:00 11:55 RBC 4.18 L (4.30-5.90) m/uL Hgb 12.6 L (13.0-17.5) gm/dL Hct 36.8 L (39.0-53.0) % Sodium 135 L (137-145) mmol/L Potassium 5.3 H (3.5-5.1) mmol/L Glucose 133 H (74-99) mg/dL POC Glucose (mg/dL) 157 H (75-99) mg/dL Hemoglobin A1c (4.0-6.0) % AST 67 H (17-59) U/L Total Protein 5.7 L (6.3-8.2) g/dL Albumin 3.3 L (3.5-5.0) g/dL Assessment and Plan (1) ST elevation myocardial infarction (STEMI) Current Visit: Yes Status: Acute Code(s): I21.3 - ST ELEVATION (STEMI) MYOCARDIAL INFARCTION OF [facility] SITE SNOMED Code(s): 066917281 (2) Diabetes mellitus Current Visit: Yes Status: Acute Code(s): E11.9 - TYPE 2 DIABETES MELLITUS WITHOUT COMPLICATIONS SNOMED Code(s): 90181279 (3) Hypertension Current Visit: Yes Status: Acute Code(s): I10 - ESSENTIAL (PRIMARY) HYPERTENSION SNOMED Code(s): 45216916 (4) Hyperlipidemia Current Visit: Yes Status: Acute Code(s): E78.5 - HYPERLIPIDEMIA, UNSPECIFIED SNOMED Code(s): 72835770 Plan: Patient is clinically stable. He'll continue current medical therapy. Patient is being discharged home. He'll continue aspirin, Plavix, beta blockers, nitrates and lipid-lowering agent. Follow-up with Dr. Henley in one week
== END 2018-07-13 14:35 | disposition home or self-care (01) | DRG 246 ==
LOC: EC 16:23 → 2SICU 17:03
PROVIDERS: ADMIT Internal Medicine; ATTEND Internal Medicine
PROC: B2111ZZ Fluoroscopy of Multiple Coronary Arteries using Low Osmolar Contrast (ICD-10-PCS; 2018-07-11)
PROC: 027037Z Dilation of Coronary Artery, One Artery with Four or More Drug-eluting Intraluminal Devices, Percutaneous Approach (ICD-10-PCS; principal; 2018-07-11 16:46)
PROC: 4A023N7 Measurement of Cardiac Sampling and Pressure, Left Heart, Percutaneous Approach (ICD-10-PCS; 2018-07-11 16:46)
DX: I21.09 ST elevation (STEMI) myocardial infarction involving other coronary artery of anterior wall (principal); T82.855A Stenosis of coronary artery stent, initial encounter; E87.5 Hyperkalemia; E03.9 Hypothyroidism, unspecified; E11.9 Type 2 diabetes mellitus without complications; E78.5 Hyperlipidemia, unspecified; F41.9 Anxiety disorder, unspecified; I10 Essential (primary) hypertension; I25.10 Atherosclerotic heart disease of native coronary artery without angina pectoris; I25.2 Old myocardial infarction; M10.9 Gout, unspecified; Z79.82 Long term (current) use of aspirin; Z79.84 Long term (current) use of oral hypoglycemic drugs; Z79.890 Hormone replacement therapy; Z79.899 Other long term (current) drug therapy; Z87.891 Personal history of nicotine dependence; Z82.49 Family history of ischemic heart disease and other diseases of the circulatory system; Y83.1 Surgical operation with implant of artificial internal device as the cause of abnormal reaction of the patient, or of later complication, without mention of misadventure at the time of the procedure
CPT/HCPCS: 36415; 80048; 80053; 80061; 83036; 83735; 83880; 84484; 85025; 85610; 85730; 93005; 93306; 93458; 96374; 99291; C1874

== ENCOUNTER → 2020-08-30 | Outpatient (CLI) | payer BC, MEDICARE ==
--- NOTE | 2020-08-30 10:29 | XR ---
EXAMINATION TYPE: XR chest 2V DATE OF EXAM: 08/30/2020 COMPARISON: NONE HISTORY: R05, cough TECHNIQUE: Frontal and lateral views of the chest are obtained. FINDINGS: There is no focal air space opacity, pleural effusion, or pneumothorax seen. The cardiac silhouette size is within normal limits. Interstitium is mildly increased. There is elevation of the left hemidiaphragm. There are coronary artery calcifications and stents in place. The osseous struct ures are intact. IMPRESSION: No acute cardiopulmonary process. Coronary artery disease. Elevated left hemidiaphragm. There may be underlying interstitial lung disease.
== END | disposition home or self-care (01) ==
LOC: RADXRMAIN 08:50
PROVIDERS: ATTEND Internal Medicine
DX: J98.6 Disorders of diaphragm (principal); I25.10 Atherosclerotic heart disease of native coronary artery without angina pectoris
CPT/HCPCS: 71046